=== PATIENT | female | born 1985 | race Caucasian/White ===

== ENCOUNTER → 2019-10-09 | Day surgery (SDC) | payer SELFPAY ==
[~2019-10-09] MED LIST: Bupivacaine HCl 0.5%/Epinephrine 1:200,000/PF 30 ml Vial ONE; Dexamethasone 20 MG/5 ML VIAL ONE; Fentanyl 100 MCG/2 ML VIAL ONE; Glycopyrrolate 0.2 MG/ML 5 ML SYRINGE ONE; Ketorolac Tromethamine 30 MG/ML VIAL ONE; Lidocaine 1% PF 5 ML VIAL ONE; Meperidine HCl/PF 25 MG/ML VIAL ONE; Ondansetron ODT 4 MG TAB ONE; Ondansetron PF 4 MG/2 ML Vial ONE; PHENYLEPHRINE-NS 100 MCG/ML 10 ML SYRINGE ONE; PROPOFOL 200 MG/20 ML VIAL ONE; Piperacillin/Tazobactam 3.375 GM VIAL ONE; Promethazine HCl 25 MG/ML VIAL ONE; Rocuronium Bromide 10 MG/ML (10ML VIAL) ONE; Sodium Chloride 0.9% 100 ML ONE
--- NOTE | 2019-10-09 14:49 | HP ---
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 She suffered anorexia and nausea earlier today, although she is hungry now. She is seen in the emergency room and had white count of 18,000. CAT scan demonstrating changes that were consistent with early appendicitis. ALLERGIES: NONE. SOCIAL HISTORY: Tobacco, one-half pack per day. Alcohol, socially. MEDICATIONS: None routinely. PAST SURGICAL HISTORY: Two C-sections. PAST MEDICAL HISTORY: Noncontributory. REVIEW OF SYSTEMS: Noncontributory. FAMILY HISTORY: Noncontributory. PHYSICAL EXAMINATION: VITAL SIGNS: Blood pressure 120/74, respiratory rate 16, and heart rate 74. HEAD, EARS, EYES, NOSE, AND THROAT: Unremarkable. LUNGS: Clear to auscultation. CARDIAC: Regular rate and rhythm without murmur or gallop. ABDOMEN: Soft. Tenderness in right lower quadrant with guarding and rebound. Positive Brown's. Positive Rovsing's. EXTREMITIES: Unremarkable. No ankle edema. LABORATORY DATA: As noted. ASSESSMENT AND PLAN: Acute appendicitis. Recommend laparoscopic video appendectomy. Risks of infection, bleeding, visceral injury, open procedure were discussed. Questions answered. Job ID: [id number]
--- NOTE | 2019-10-09 16:11 | OP ---
DATE OF PROCEDURE: 10/09/2019 PREOPERATIVE DIAGNOSIS: Appendicitis. POSTOPERATIVE DIAGNOSIS: Appendicitis. PROCEDURE PERFORMED: Laparoscopic video appendectomy. ANESTHESIA: General, local 0.5% Marcaine with epinephrine 30 mL total volume used. DESCRIPTION OF PROCEDURE: The patient was taken to the operating room. Under general anesthesia, a Ramos catheter was placed at the beginning of the procedure and removed at the end. Abdomen was prepared with ChloraPrep and draped in routine fashion. Local anesthetic was infiltrated in the skin and subcutaneous tissue. About each port site, infraumbilical incision was made. Pneumoperitoneum to 15 mmHg obtained with a Veress needle, replaced with a 5 port video laparoscope inserted. Suprapubic incision was made and a 12 port placed. Right lateral subcostal incision was made and a 5 port placed. Appendix identified acutely inflamed. Mesoappendix was taken down with the LigaSure. The stump of the appendix divided the cecal stump with the Endo-SHEYLA blue load stapler. Appendix removed submitted to Pathology. Stapled cecal stump was hemostatic and secured. Irrigant and pneumoperitoneum evacuated. All instruments were removed. Suprapubic fascia was approximated with 0 Vicryl, skin with interrupted subdermal 4-0 Monocryl and Accokeek glue applied. Job ID: [id number]
== END | disposition home or self-care (01) ==
LOC: ERS 12:08 → SDC/OP 19:50
PROVIDERS: ATTEND Specialist
PROC: 0DTJ4ZZ Resection of Appendix, Percutaneous Endoscopic Approach (ICD-10-PCS; principal; 2019-10-09)
DX: K35.80 Unspecified acute appendicitis (principal); F17.210 Nicotine dependence, cigarettes, uncomplicated; Z30.2 Encounter for sterilization
CPT/HCPCS: 88304; J0131; J0670; J1100; J1885; J2001; J2175; J2405; J2543; J2550; J2704; J3010; J3490; Q0162